=== PATIENT | female | born 1995 | race African-American/Black ===

== ENCOUNTER 2021-04-02 02:03 | Emergency (ER) | payer SELFPAY ==
[~2021-04-02] VITALS: Ht 160 cm; Wt 72.0 kg
[2021-04-02] MEDS ORDERED: VISCOUS LIDOCAINE 2% 15 ML UDC PO STA (02:33)
[2021-04-02] MEDS ORDERED: MAGNESIUM/ALUMINUM HYDROXIDE/SIMETHICONE 30ML UDC PO STA (02:33)
[2021-04-02] MEDS ORDERED: PANTOPRAZOLE SODIUM 40 MG/VIAL IV STA (02:33)
[2021-04-02] MEDS ORDERED: ONDANSETRON 4MG ODT PO ONE (02:45)
[2021-04-02 03:00] VITALS: BP 139/75
[2021-04-02 03:11] LABS: HEMATOCRIT. 35.8 % (36.0-48.0); HEMOGLOBIN. 11.7 g/dL (12.0-16.0); MEAN CORPUSCULAR HEMOGLOBIN 30.4 pg (28.0-32.0); MEAN PLATELET VOLUME 8.9 fl (7.4-10.4); PLATELET 407 x1000/uL (130-400); RED BLOOD CELL COUNT 3.85 mill/uL (4.2-5.4); RED CELL DISTRIBUTION WIDTH 15.5 % (11.6-14.6)
[2021-04-02 03:18] LABS: CHLORIDE 109 mEq/L (98-107)
[2021-04-02 03:22] LABS: ETHANOL BLOOD < 10 mg/dL
[2021-04-02 03:25] LABS: CLARITY URINE CLOUDY (CLEAR); COLOR URINE YELLOW (YELLOW); KETONES URINE 3+ (NEGATIVE); LEUKOCYTE ESTERASE URINE TRACE (NEGATIVE); NITRITE URINE NEGATIVE (NEGATIVE); OCCULT BLOOD URINE 2+ (NEGATIVE); PH URINE 8.5 (4.5-8.0); PROTEIN URINE 1+ (NEGATIVE); SPECIFIC GRAVITY URINE 1.026 (1.005-1.030)
[2021-04-02] MEDS ORDERED: PANTOPRAZOLE SODIUM 40 MG/VIAL IV NR (03:30)
[2021-04-02 03:34] LABS: *AMPHETAMINES SCREEN URINE NEGATIVE (NEGATIVE); *BARBITURATES SCREEN URINE NEGATIVE (NEGATIVE)
[2021-04-02 03:35] LABS: *BENZODIAZEPINES SCREEN URINE NEGATIVE (NEGATIVE); *COCAINE SCREEN URINE NEGATIVE (NEGATIVE); METHADONE URINE SCREEN NEGATIVE (NEGATIVE); OPIATES URINE SCREEN NEGATIVE (NEGATIVE); PHENCYCLIDINE URINE SCREEN NEGATIVE (NEGATIVE)
[2021-04-02 03:43] LABS: CANNABINOID URINE SCREEN PRESUMTIVE POSITIVE (NEGATIVE)
[2021-04-02] MEDS ORDERED: SODIUM CHLORIDE 0.9% 1,000 ML IV NR (03:45)
[2021-04-02] MEDS ORDERED: HALOPERIDOL LACTATE 5MG/ML VIAL IM ONE (04:00)
[2021-04-02 07:36] LABS: PLATELET ESTIMATE SLIGHTLY INCREASED
== END 2021-04-02 06:20 | disposition home or self-care (01) ==
LOC: ER 02:03
DX: R11.2 Nausea with vomiting, unspecified (principal); F12.10 Cannabis abuse, uncomplicated; K21.9 Gastro-esophageal reflux disease without esophagitis; Z88.0 Allergy status to penicillin
CPT/HCPCS: 36415; 80053; 80305; 80320; 81003; 83690; 85025; 96361; 96372; 96374; 99283; C9113; J1630; Q0162; G0480